=== PATIENT | male | born 1950 | race Caucasian/White ===

== ENCOUNTER 2022-08-01 12:45 | Emergency (ER) | payer MEDICARE ==
[~2022-08-01] VITALS: Ht 188 cm; Wt 95.3 kg
[2022-08-01] MEDS ORDERED: CYCLOBENZAPRINE HCL 10 MG TABLET PO ONE (15:00)
[2022-08-01] MEDS ORDERED: IBUPROFEN 600 MG TABLET PO ONE (15:00)
[2022-08-01] MEDS ORDERED: IBUP-2070 PO (15:06)
[2022-08-01] MEDS ORDERED: CYCL10TA16 PO (15:06)
[2022-08-01 15:23] VITALS: BP 147/76
== END 2022-08-01 15:22 | disposition home or self-care (01) ==
LOC: EDH 12:45
DX: S76.012A Strain of muscle, fascia and tendon of left hip, initial encounter (principal); I10 Essential (primary) hypertension; W19.XXXA Unspecified fall, initial encounter; Y93.55 Activity, bike riding; Y92.89 Other specified places as the place of occurrence of the external cause; Y99.8 Other external cause status
CPT/HCPCS: 73502